=== PATIENT | female | born 1955 | race Caucasian/White ===

== ENCOUNTER 2017-12-22 08:16 | Day surgery (SDC) | payer BC ==
[~2017-12-22 08:16] MED LIST: Lactated Ringers 1,000 ML IV SCH; Sodium Chloride 0.9% 10 ML Syringe FLUSH PRN
--- NOTE | 2017-12-22 09:39 | PCM.OPNOTE ---
- General Post-Op/Procedure Note Date of Surgery/Procedure: 12/22/17 Operative Procedure(s): c scope Findings: sigmoid diverticulosis Pre Op Diagnosis: screening Post-Op Diagnosis: sigmoid diverticulosis Anesthesia Technique: MAC Primary Surgeon: Tor Aguilar Anesthesia Provider: Brian Anderson Pathology: none Complications: None Condition: Good Free Text/Narrative:: see dictation
[2017-12-22 10:13] VITALS: BP 102/76
--- NOTE | 2017-12-22 14:46 | OR ---
DATE OF OPERATION: 12/22/2017 SURGEON: Tor Aguilar MD PROCEDURE PERFORMED: Colonoscopy. PREOPERATIVE DIAGNOSIS: Need for screening C-scope. POSTOPERATIVE DIAGNOSIS: Sigmoid diverticulum. INDICATIONS FOR PROCEDURE: This is a 62-year-old white female who presents for screening colonoscopy. She was offered and accepted same. DESCRIPTION OF OPERATION: After an excellent IV sedation was administered, digital rectal exam was performed. No marked abnormality was noted. The flexible colonoscope was inserted and advanced to the cecum without difficulty. The prep was excellent. The following findings were noted. Ascending colon, unremarkable. Transverse colon, unremarkable. Descending colon, unremarkable. Sigmoid and rectum, mild diverticulosis, otherwise unremarkable. Colon was deflated. The scope was removed. RECOMMENDATIONS: Repeat scope in 10 years. /[id number] /ANTON[facility]TAL
== END 2017-12-22 10:39 | disposition home or self-care (01) ==
LOC: FB.SDS 08:16
PROVIDERS: ATTEND Surgery
PROC: 0DJD8ZZ Inspection of Lower Intestinal Tract, Via Natural or Artificial Opening Endoscopic (ICD-10-PCS; principal; 2017-12-22)
DX: Z12.11 Encounter for screening for malignant neoplasm of colon (principal); K57.30 Diverticulosis of large intestine without perforation or abscess without bleeding; E78.5 Hyperlipidemia, unspecified; Z79.82 Long term (current) use of aspirin; Z79.899 Other long term (current) drug therapy
CPT/HCPCS: 45378; J7120